=== PATIENT | female | born 1945 | race Caucasian/White ===

== ENCOUNTER 2022-11-21 12:27 | Emergency (ER) | payer OTHER, SELFPAY ==
[2022-11-21] VITALS (7 sets, daily range): BP systolic 135–175; BP diastolic 76–91; PULSE 79–94; RESP 18–35; TEMP 36.3; O2SAT 98–99; BMI 20.7
--- NOTE | 2022-11-21 12:53 | DI.RAD.S_ITS ---
PROCEDURE: XR CHEST 1V INDICATIONS: chest pain TECHNIQUE: One view of the chest was acquired. COMPARISON: None. FINDINGS: Surgical changes and devices: None. Lungs and pleura: Lungs are clear. No pleural effusions or pneumothorax. Mediastinum: Mediastinal contours appear normal. Heart size is normal. Atherosclerotic vascular calcification noted in the aortic arch. Bones and chest wall: No suspicious bony lesions. Overlying soft tissues appear unremarkable. Densities projecting over the right left shoulders probably external to the patient IMPRESSION: No acute cardiopulmonary findings Approved by: Ruddy Nuno M.D. on 11/21/2022 at 13:19
[2022-11-21 13:03] LABS: INR 1.4 (0.9-1.3); Prothrombin Time 15.9 SECONDS (10.1-12.7)
[2022-11-21 13:06] LABS: Alanine Aminotransferase 24 IU/L (<35); Albumin 4.8 g/dL (3.5-5.0); Albumin Globulin Ratio 1.5 (1.0-2.8); Alkaline Phosphatase 62 U/L (38-126); Aspartate Aminotransferase 33 IU/L (14-36); BUN Creatinine Ratio 17.3 (6-22); Bilirubin Total 0.8 mg/dL (0.2-1.3); Blood Urea Nitrogen 14 mg/dL (7-17); Calcium 9.8 mg/dL (8.4-10.2); Carbon Dioxide 30 mmol/L (22-32); Chloride 103 mmol/L (98-107); Creatine Kinase 71 U/L (30-135); Estimated Glomerular Filt Rate > 60 mL/min (>60); Globulin 3.2 g/dL (1.7-4.1); Glucose 125 mg/dL (80-110); HEMOLYSIS < 15 (0-50); Lipase 227 U/L (23-300); PTT Partial Thromboplastin Tim 67 SECONDS (26-36); Potassium 3.8 mmol/L (3.4-5.1); Sodium 139 mmol/L (137-145)
--- NOTE | 2022-11-21 13:09 | ED.ARRPALP ---
HPI - Arrhythmia/Palpitations General Chief Complaint: Arrhythmia/Palpitations Stated Complaint: AFIB Time Seen by Provider: 11/21/22 12:31 Source: patient Mode of arrival: Ambulatory History of Present Illness HPI narrative: Patient is a healthy 77-year-old female history of atrial fibrillation on Pradaxa presents today with AFib with RVR. She reports it on her Apple watch she noticed that her heart rate was 1 9 at its max. She instantly felt like she did not feel very good heart was racing and flip-flopping in her chest. Lasted for approximately 1 hour. She self converted at home but was instructed to come to the ED for further evaluation. She denies any fever chills shortness of breath or any other symptoms. She is occasionally having some abdominal discomfort history of diverticulitis. But she thinks abdomen is not significantly tender now and overall feels better now that she is back in sinus rhythm. Related Data Allergies Allergy/AdvReac Type Severity Reaction Status Date / Time ampicillin Allergy Verified 11/21/22 12:42 Penicillins Allergy Verified 11/21/22 12:42 Review of Systems Review of Systems ROS Unobtainable: All systems reviewed & are unremarkable except as noted in HPI and below Patient History Social History Smoking Status: Never smoker Smoking Status: Never smoker alcohol intake frequency: a few times a week Alcohol type: wine Substance Use Type: does not use Exam Initial Vital Signs Initial Vital Signs: Vital Signs Pulse Oximetry 98 11/21/22 12:34 GENERAL: Alert pleasant 77-year-old female HEENT: Head atraumatic,EOMI, pupils reactive, face symmetric, moist mucous membranes CARDIOVASCULAR: Regular rate and rhythm without murmurs, rubs or gallops. RESPIRATORY: Breath sounds equal bilaterally, no wheezes rales or rhonchi. ABDOMEN: Soft, nontender. Normoactive bowel sounds all 4 quadrants. No guarding or rebound. EXTREMITIES: Normal range of motion, no clubbing or edema. Neurovascularly intact NEUROLOGICAL: Alert and oriented x4. SKIN: Warm, dry, no laceration, no petechiae, no rashes or lesions. Course Orders Ordered: ED Orders 11/21/22 12:40 Complete Blood Count AUTO DIFF Stat Comprehensive Metabolic Panel Stat Lipase Stat Magnesium Stat PTT Partial Thromboplastin Joseph Stat Prothrombin Time INR Stat Troponin & CK Cardiac Panel Stat 11/21/22 12:45 EKG-12 Lead Routine 11/21/22 12:53 XR chest 1V Stat 11/21/22 13:20 COVID19 -Nasal RAPID Stat Discontinued Medications Aspirin (Aspirin 81 Mg Chew Tab) 324 mg PO NOW ONE Stop: 11/21/22 12:53 Last Admin: 11/21/22 13:32 Dose: Not Given Documented By: DANYA Vital Signs Vital signs: Vital Signs - 8 hr 11/21/22 12:37 11/21/22 12:34 11/21/22 12:35 Temperature 97.3 F L Pulse Rate 90 94 H Respiratory Rate 18 Blood Pressure 175/91 H Pulse Oximetry 99 98 99 Oxygen Delivery Method Room Air 11/21/22 12:35 11/21/22 13:00 11/21/22 13:01 Temperature Pulse Rate 85 82 Respiratory Rate 25 H 34 H Blood Pressure 175/91 H Pulse Oximetry 98 98 Oxygen Delivery Method 11/21/22 13:01 11/21/22 13:30 11/21/22 13:30 Temperature Pulse Rate 79 Respiratory Rate 35 H Blood Pressure 156/76 H 135/85 Pulse Oximetry 99 Oxygen Delivery Method 11/21/22 14:00 Temperature Pulse Rate Respiratory Rate 18 Blood Pressure Pulse Oximetry Oxygen Delivery Method MDM - Arrhythmia/Palpitations Lab Data 11/21/22 12:40 11/21/22 12:40 Labs: Lab Results 11/21/22 11/21/22 11/21/22 Range/Units 12:40 12:40 12:40 WBC 3.9 L (4.5-11.0) X10^3/uL RBC 5.03 (4.0-5.2) X10^6/uL Hgb 16.3 H (12.0-16.0) g/dL Hct 47.1 H (36-46) % MCV 93.6 (80-100) fL MCH 32.4 (26-34) PG MCHC 34.6 (30-36) % RDW 12.5 (11.6-14.8) % Plt Count 224 (150-400) X10^3/uL Neut % (Auto) 42.9 L (50-75) % Lymph % (Auto) 31.8 (25-40) % [place] % (Auto) 20.2 H (3-14) % Eos % (Auto) 3.6 (2-4) % Baso % (Auto) 1.5 (0-2) % Neut # (Auto) 1700 (0789-0406) /uL Lymph # (Auto) 1200 (4536-0292) /uL [place] # (Auto) 800 (0-900) /uL Eos # (Auto) 100 (0-450) /uL Baso # (Auto) 100 (0-100) /uL PT 15.9 H (10.1-12.7) SECONDS INR 1.4 H (0.9-1.3) APTT 67 H (26-36) SECONDS Sodium 139 (137-145) mmol/L Potassium 3.8 (3.4-5.1) mmol/L Chloride 103 (98-107) mmol/L Carbon Dioxide 30 (22-32) mmol/L BUN 14 (7-17) mg/dL Creatinine 0.81 (0.52-1.04) mg/dL Estimated GFR > 60 (>60) mL/min BUN/Creatinine Ratio 17.3 (6-22) Glucose 125 H (80-110) mg/dL Calcium 9.8 (8.4-10.2) mg/dL Magnesium 2.0 (1.6-2.3) mg/dL Total Bilirubin 0.8 (0.2-1.3) mg/dL AST 33 (14-36) IU/L ALT 24 (<35) IU/L Alkaline Phosphatase 62 (38-126) U/L Total Creatine Kinase 71 (30-135) U/L CK-MB (CK-2) TNP CK-MB (CK-2) Rel Index TNP Troponin I < 0.012 (0.01-0.034) ng/mL Total Protein 8.0 (6.3-8.2) g/dL Albumin 4.8 (3.5-5.0) g/dL Globulin 3.2 (1.7-4.1) g/dL Albumin/Globulin Ratio 1.5 (1.0-2.8) Lipase 227 (23-300) U/L SARS-CoV-2 (PCR) (Negative) 11/21/22 Range/Units 13:20 WBC (4.5-11.0) X10^3/uL RBC (4.0-5.2) X10^6/uL Hgb (12.0-16.0) g/dL Hct (36-46) % MCV (80-100) fL MCH (26-34) PG MCHC (30-36) % RDW (11.6-14.8) % Plt Count (150-400) X10^3/uL Neut % (Auto) (50-75) % Lymph % (Auto) (25-40) % [place] % (Auto) (3-14) % Eos % (Auto) (2-4) % Baso % (Auto) (0-2) % Neut # (Auto) (9095-6657) /uL Lymph # (Auto) (8855-9617) /uL [place] # (Auto) (0-900) /uL Eos # (Auto) (0-450) /uL Baso # (Auto) (0-100) /uL PT (10.1-12.7) SECONDS INR (0.9-1.3) APTT (26-36) SECONDS Sodium (137-145) mmol/L Potassium (3.4-5.1) mmol/L Chloride (98-107) mmol/L Carbon Dioxide (22-32) mmol/L BUN (7-17) mg/dL Creatinine (0.52-1.04) mg/dL Estimated GFR (>60) mL/min BUN/Creatinine Ratio (6-22) Glucose (80-110) mg/dL Calcium (8.4-10.2) mg/dL Magnesium (1.6-2.3) mg/dL Total Bilirubin (0.2-1.3) mg/dL AST (14-36) IU/L ALT (<35) IU/L Alkaline Phosphatase (38-126) U/L Total Creatine Kinase (30-135) U/L CK-MB (CK-2) CK-MB (CK-2) Rel Index Troponin I (0.01-0.034) ng/mL Total Protein (6.3-8.2) g/dL Albumin (3.5-5.0) g/dL Globulin (1.7-4.1) g/dL Albumin/Globulin Ratio (1.0-2.8) Lipase (23-300) U/L SARS-CoV-2 (PCR) Negative (Negative) Imaging Data Chest x-ray: My Impression: No acute cardiopulmonary process Radiologist's Impresson: PROCEDURE:? XR CHEST 1V ? INDICATIONS:? chest pain ? TECHNIQUE:? One view of the chest was acquired.? ? COMPARISON:? None. ? FINDINGS:? ? Surgical changes and devices:? None.? ? Lungs and pleura:? Lungs are clear.? No pleural effusions or pneumothorax.? ? Mediastinum:? Mediastinal contours appear normal.? Heart size is normal.? Atherosclerotic vascular calcification noted in the aortic arch. ? Bones and chest wall:? No suspicious bony lesions.? Overlying soft tissues appear unremarkable.? Densities projecting over the right left shoulders probably external to the patient ? IMPRESSION:? ? No acute cardiopulmonary findings ? ? ? Approved by: Ruddy Nuno M.D. on 11/21/2022 at 13:19? ECG Data Interpretation: Normal sinus rhythm rate 75 FL 140 QRS [address] changes no priors to compare MDM Narrative Medical decision making narrative: Patient has a history of atrial fibrillation she was symptomatic with elevated heart rate confirmed by her watch. Heart rate is now well controlled in sinus rhythm on the monitor 79. Blood work is overall reassuring mild leukopenia with WBC 3.9, hemoconcentrated hemoglobin of 16.3 hematocrit of 47 platelets 224, electrolytes overall reassuring no evidence of infection. She is history of AFib. Recommend outpatient follow-up. Discharge Plan Departure Patient Disposition: Home Clinical Impression: Atrial fibrillation Instructions: DI for Atrial Fibrillation Activity Restrictions/Additional Instructions: *You have been diagnosed with atrial fibrillation *What to do: At this time please follow-up with your bolt header. You are slightly dehydrated please drink some fluids *Continue to take medications as directed *Follow up with your primary care provider in 2-3 days or call [phone] *Return to ER if you should have persistent elevated heart rate greater than 120 for more than 2 hours or significantly symptomatic with chest pain palpitations dizziness or shortness or any new, worsening or concerning symptoms Referrals: Jael Kennedy MD [Primary Care Provider] - Stand Alone Forms: Patient Portal/API
[2022-11-21 13:10] LABS: Add Manual Diff / Slide Review NO; Basophils Absolute Auto 100 /uL (0-100); Basophils Percent Auto 1.5 % (0-2); Eosinophils Absolute Auto 100 /uL (0-450); Eosinophils Percent Auto 3.6 % (2-4); Hematocrit 47.1 % (36-46); Hemoglobin 16.3 g/dL (12.0-16.0); Lymphocytes Absolute Auto 1200 /uL (1100-4500); Lymphocytes Percent Auto 31.8 % (25-40); Mean Corpuscular HGB Conc 34.6 % (30-36); Mean Corpuscular Hemoglobin 32.4 PG (26-34); Mean Corpuscular Volume 93.6 fL (80-100); Monocytes Absolute Auto 800 /uL (0-900); Monocytes Percent Auto 20.2 % (3-14); Neutrophils Absolute Auto 1700 /uL (1500-7000); Neutrophils Percent Auto 42.9 % (50-75); Platelet Count 224 X10^3/uL (150-400); Red Blood Cell Count 5.03 X10^6/uL (4.0-5.2); Red Cell Distribution Width 12.5 % (11.6-14.8); White Blood Cell Count 3.9 X10^3/uL (4.5-11.0)
[2022-11-21 13:17] LABS: Troponin I < 0.012 ng/mL (0.01-0.034)
[2022-11-21 14:11] LABS: COVID19 -Nasal RAPID Negative (Negative)
== END 2022-11-21 14:01 | disposition home or self-care (01) ==
PROVIDERS: Emergency Provider Emergency Medicine; PCP Family Medicine Geriatric Medicine
DX: I48.20 Chronic atrial fibrillation, unspecified (principal); R07.9 Chest pain, unspecified; Z79.01 Long term (current) use of anticoagulants; Z20.822 Contact with and (suspected) exposure to COVID-19
CPT/HCPCS: 36415; 71045; 80053; 82550; 83690; 83735; 84484; 85025; 85610; 85730; 87635; 93005; 93010; 99283; 99284; C9803